=== PATIENT | female | born 1945 | race Caucasian/White ===

== ENCOUNTER → 2016-12-09 | Outpatient (REF) | payer MEDICARE ==
[~2016-12-09] MED LIST: /WARF25TA PO; ACET65TA PO; ASPI81TA85 PO; BACT800T PO; CELE1CAP4 PO; CRES5TAB PO; DULO20CA PO; FEVE380C PO; GLUC1000 PO; IRBE150T14 PO; NEXI1CAP4 PO; PRAV10TA4 PO; PREG50CA PO; ROPI0.5T PO; SKEL800T5 PO; TRAM50TA2 PO; VITA500046 PO; aspirin PO; avapro PO; b-complex PO; caltrate PO; cymbalta PO; flaxseed oil PO; flonase; hctz PO; loratadine PO; lovaza PO; requip PO; vitamin b-12 SUBQ; vitamin d PO
== END ==
LOC: M LAB REF 13:31
PROVIDERS: ATTEND Surgery
DX: C44.510 Basal cell carcinoma of anal skin (principal)

== ENCOUNTER 2017-02-09 10:33 | Day surgery (SDC) | payer MEDICARE ==
[~2017-02-09] VITALS: Ht 154.9 cm; Wt 69.4 kg
[~2017-02-09 10:33] MED LIST changes: +ACETAMINOPHEN 325 MG TAB PO PRN; +BSS with VANC/TOB/EPI for EYE CASES IR ONE; +CYCLOPENTOLATE 2% OPHTH SOLN 2ML BTL OD ONE; +LIDOCAINE 3.5 % 1ML OPHTH TOPICAL GEL OU ONE; +OFLOXACIN 0.3 % (OCUFLOX) OPTH SOL 5ML OD ONE; +PHENYLEPHRINE 2.5% OPHTH SOL 2ML OD ONE; +PROPARACAINE 0.5% OPHTH SOL 15ML OD PRN; +TROPICAMIDE 1% OPHTH SOLN 2ML OD ONE
[2017-02-09] MEDS ORDERED: MOXIFLOXACIN IN BSS 0.25MG/0.25ML INTRACAMERAL INJ (OR EYE ONLY)(J2280) As Ordered ONE (10:35)
[2017-02-09] MEDS ORDERED: LIDOCAINE 1% SDV 5 ML VIAL As Ordered ONE (10:35)
[2017-02-09] MEDS ORDERED: POVIDONE-IODINE 5% OPHTH PREP SOL 30ML As Ordered ONE (10:35)
[2017-02-09] MEDS ORDERED: HEALON DUET (HEALON 10MG/ML 0.55ML & HEALON ENDOCOAT 30MG/ML 0.85ML) As Ordered ONE (10:35)
[2017-02-09] MEDS ORDERED: TRIAMCINOLONE PRES FR 40 MG/ML 1ML(TRIESENCE)(OR EYE ONLY)(J3300 PER 1MG) As Ordered ONE (10:35)
[2017-02-09] MEDS ORDERED: LR 1,000 ML IV ONE (10:45)
[2017-02-09] MEDS ORDERED: MIDAZOLAM INJ 2 MG/2 ML VIAL (J2250) As Ordered ONE (11:51)
[2017-02-09] MEDS ORDERED: fentaNYL 100 MCG/2 ML INJECTION (J3010) As Ordered ONE (11:51)
[2017-02-09] MEDS ORDERED: AcetaZOLAMIDE 500 MG ER CAP As Ordered ONE (12:29)
[2017-02-09] MEDS ORDERED: fentaNYL 100 MCG/2 ML INJECTION (J3010) IV PRN (12:45)
[2017-02-09] MEDS ORDERED: LR 1,000 ML IV SCH (12:45)
[2017-02-09] MEDS ORDERED: AcetaZOLAMIDE 500 MG ER CAP PO ONE (12:45)
[2017-02-09] MEDS ORDERED: KETOROLAC 0.5% OPHTH SOLN OD ONE (12:45)
[2017-02-09] MEDS ORDERED: ONDANSETRON 4MG/2ML VIAL (J2405) IV PRN (12:45)
[2017-02-09] MEDS ORDERED: TRIMETHOBENZAMIDE 300 MG CAP PO PRN (12:45)
[2017-02-09 13:00] VITALS: BP 137/61
== END 2017-02-09 13:15 | disposition home or self-care (01) ==
LOC: M SDC 10:33
PROVIDERS: ATTEND Ophthalmology
DX: H25.9 Unspecified age-related cataract (principal); I10 Essential (primary) hypertension; E78.5 Hyperlipidemia, unspecified; K57.32 Diverticulitis of large intestine without perforation or abscess without bleeding; K21.9 Gastro-esophageal reflux disease without esophagitis; F41.9 Anxiety disorder, unspecified; F32.9 Major depressive disorder, single episode, unspecified; G47.30 Sleep apnea, unspecified; Z79.82 Long term (current) use of aspirin; Z79.899 Other long term (current) drug therapy
CPT/HCPCS: 66984; J2250; J2280; J3010; J3300; V2632

== ENCOUNTER 2017-02-18 09:48 | Day surgery (SDC) | payer MEDICARE ==
[~2017-02-18] VITALS: Ht 154.9 cm; Wt 69.4 kg
[~2017-02-18 09:48] MED LIST changes: -CYCLOPENTOLATE 2% OPHTH SOLN 2ML BTL OD ONE; +CYCLOPENTOLATE 2% OPHTH SOLN 2ML BTL OS ONE; -OFLOXACIN 0.3 % (OCUFLOX) OPTH SOL 5ML OD ONE; +OFLOXACIN 0.3 % (OCUFLOX) OPTH SOL 5ML OS ONE; -PHENYLEPHRINE 2.5% OPHTH SOL 2ML OD ONE; +PHENYLEPHRINE 2.5% OPHTH SOL 2ML OS ONE; -PROPARACAINE 0.5% OPHTH SOL 15ML OD PRN; +PROPARACAINE 0.5% OPHTH SOL 15ML XX PRN; -TROPICAMIDE 1% OPHTH SOLN 2ML OD ONE; +TROPICAMIDE 1% OPHTH SOLN 2ML OS ONE
[2017-02-18] MEDS ORDERED: LR 1,000 ML IV ONE (10:00)
[2017-02-18] MEDS ORDERED: OFLOXACIN 0.3 % (OCUFLOX) OPTH SOL 5ML As Ordered ONE (10:03)
[2017-02-18] MEDS ORDERED: CYCLOPENTOLATE 2% OPHTH SOLN 2ML BTL As Ordered ONE (10:03)
[2017-02-18] MEDS ORDERED: TROPICAMIDE 1% OPHTH SOLN 2ML As Ordered ONE (10:03)
[2017-02-18] MEDS ORDERED: PHENYLEPHRINE 2.5% OPHTH SOL 2ML As Ordered ONE (10:03)
[2017-02-18] MEDS ORDERED: MIDAZOLAM INJ 2 MG/2 ML VIAL (J2250) As Ordered ONE (10:32)
[2017-02-18] MEDS ORDERED: LIDOCAINE 1% SDV 5 ML VIAL As Ordered ONE (10:32)
[2017-02-18] MEDS ORDERED: fentaNYL 100 MCG/2 ML INJECTION (J3010) As Ordered ONE (10:32)
[2017-02-18] MEDS ORDERED: HEALON DUET (HEALON 10MG/ML 0.55ML & HEALON ENDOCOAT 30MG/ML 0.85ML) As Ordered ONE (10:32)
[2017-02-18] MEDS ORDERED: POVIDONE-IODINE 5% OPHTH PREP SOL 30ML As Ordered ONE (10:32)
[2017-02-18] MEDS ORDERED: TRIAMCINOLONE PRES FR 40 MG/ML 1ML(TRIESENCE)(OR EYE ONLY)(J3300 PER 1MG) As Ordered ONE (10:32)
[2017-02-18] MEDS ORDERED: MOXIFLOXACIN IN BSS 0.25MG/0.25ML INTRACAMERAL INJ (OR EYE ONLY)(J2280) As Ordered ONE (10:32)
[2017-02-18 12:00] VITALS: BP 164/72
[2017-02-18] MEDS ORDERED: AcetaZOLAMIDE 500 MG ER CAP As Ordered ONE (12:16)
[2017-02-18] MEDS ORDERED: KETOROLAC 0.5% OPHTH SOLN XX ONE (12:30)
[2017-02-18] MEDS ORDERED: AcetaZOLAMIDE 500 MG ER CAP PO ONE (12:30)
[2017-02-18] MEDS ORDERED: TRIMETHOBENZAMIDE 300 MG CAP PO PRN (12:30)
== END 2017-02-18 12:15 | disposition home or self-care (01) ==
LOC: M SDC 09:48
PROVIDERS: ATTEND Ophthalmology
DX: H25.9 Unspecified age-related cataract (principal); E11.9 Type 2 diabetes mellitus without complications; I10 Essential (primary) hypertension; E78.5 Hyperlipidemia, unspecified; K21.9 Gastro-esophageal reflux disease without esophagitis; F41.9 Anxiety disorder, unspecified; F32.9 Major depressive disorder, single episode, unspecified; Z79.82 Long term (current) use of aspirin; Z79.899 Other long term (current) drug therapy; G47.30 Sleep apnea, unspecified
CPT/HCPCS: 66984; J2250; J2280; J3010; J3300; V2632

== ENCOUNTER 2018-11-14 14:08 | Emergency (ER) | payer MEDICARE ==
[~2018-11-14] VITALS: Ht 157.5 cm; Wt 76.4 kg
[~2018-11-14 14:08] MED LIST changes: -/WARF25TA PO; -ACETAMINOPHEN 325 MG TAB PO PRN; -BSS with VANC/TOB/EPI for EYE CASES IR ONE; +CALC500T49 PO; +COUM1TAB18 PO; -CYCLOPENTOLATE 2% OPHTH SOLN 2ML BTL OS ONE; +CYMB1CAP4 PO; -DULO20CA PO; +ESCI5SOL3 PO; +FLUTISP; +HYDR-643 PO; -LIDOCAINE 3.5 % 1ML OPHTH TOPICAL GEL OU ONE; +MAGN1TAB26 PO; +MEMA1TAB2 PO; -OFLOXACIN 0.3 % (OCUFLOX) OPTH SOL 5ML OS ONE; +OXYB5TAB PO; -PHENYLEPHRINE 2.5% OPHTH SOL 2ML OS ONE; -PROPARACAINE 0.5% OPHTH SOL 15ML XX PRN; -TROPICAMIDE 1% OPHTH SOLN 2ML OS ONE; +TURM450C PO
[2018-11-14 15:11] LABS: HEMATOCRIT 38.3 % (36.0-47.0); HEMOGLOBIN 13.1 g/dl (12.0-15.5); MEAN CORPUSCULAR HGB CONC 34.2 g/dl (32.0-36.5); MEAN CORPUSCULAR VOLUME 105.2 fl (80.0-96.0); PLATELET COUNT, AUTOMATED 188 10^3/uL (150-450); RED BLOOD COUNT 3.64 10^6/uL (4.00-5.40); WHITE BLOOD COUNT 5.3 10^3/uL (4.0-10.0)
--- NOTE | 2018-11-14 15:30 | REP ---
CT study of the cervical spine without contrast: History: Headache. Injury in a fall. Technique: Helical scanning is acquired and overlapping 2 mm high resolution axial images were generated and reviewed at bone and soft tissue window settings. Coronal and sagittal multiplanar re-formations images are generated. CT findings: There is no evidence of cervical spine element fracture. No skull base fracture is seen. Cervical vertebral body heights are preserved. There is straightening and reversal of the normal cervical lordosis. There is ankylosis of the C5-6 disc space. There is partial fusion of the facet joints at this level bilaterally as well. No fracture or collapse is seen. There is osteoarthritic facet hypertrophy bilaterally at the mid cervical whole spine most prominent on the right at C3-4. There is mild central disc bulging at C4-5. There is discogenic spurring and uncovertebral spurring on the left at C6-7. Facet joints are normally aligned bilaterally at each cervical level on multiplanar re-formations images. There is no evidence of intraspinal or paraspinal hematoma. No extra vertebral abnormality is seen. Impression: Degenerative disc and facet changes. Reversal of the normal cervical lordosis. Central disc bulging at C4-5 and posterior osteophytic ridging and left-sided uncovertebral spurring at C6-7. C5-6 disc and facet joints are ankylosed. Otherwise negative CT study of the cervical spine without contrast. No fracture seen. Electronically Signed by Augusto Rubin MD 11/14/2018 03:21 P
[2018-11-14 15:40] LABS: ALBUMIN 3.9 GM/DL (3.2-5.2); ALT/SGPT 35 U/L (12-78); BILIRUBIN,DIRECT 0.1 MG/DL (0.0-0.2); BILIRUBIN,TOTAL 0.5 MG/DL (0.2-1.0); BLOOD UREA NITROGEN 30 MG/DL (7-18); CALCIUM LEVEL 9.3 MG/DL (8.8-10.2); CARBON DIOXIDE LEVEL 26 MEQ/L (21-32); CHLORIDE LEVEL 107 MEQ/L (98-107); CK-MB VALUE MASS 2.1 NG/ML (<3.6); CPK CREATINE PHOSPHOKINASE 162 U/L (26-192); CREATININE FOR GFR 0.82 MG/DL (0.55-1.30); GLOMERULAR FILTRATION RATE > 60.0 (>39); GLUCOSE, FASTING 125 MG/DL (70-100); POTASSIUM SERUM 3.6 MEQ/L (3.5-5.1); SODIUM LEVEL 142 MEQ/L (136-145); TOTAL PROTEIN 7.3 GM/DL (6.4-8.2); TROPONIN I < 0.02 NG/ML (< 0.10)
[2018-11-14 15:45] LABS: INR 1.04; PROTHROMBIN TIME 13.3 SECONDS (11.8-14.0)
[2018-11-14] MEDS ORDERED: KETOROLAC 30 MG/ML VIAL (J1885) IV ONE (16:45)
[2018-11-14] MEDS ORDERED: NS 1,000 ML IV ONE (16:45)
[2018-11-14 19:30] VITALS: BP 154/70
[2018-11-14] MEDS ORDERED: NEUR100C PO (19:45)
--- NOTE | 2018-11-15 08:11 | REP ---
CT BRAIN WITHOUT CONTRAST: HISTORY: Vertigo. Comparison head CT study October 07, 2014. 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 The maxilla is edentulous. On axial CT images, bone window settings show no bony calvarial defect. No skull fracture is seen. Visualized paranasal sinuses are clear. No intraorbital abnormality is seen. There is generalized intracranial volume loss. Mild small vessel changes are seen in the periventricular white matter of the frontal and parietal lobes bilaterally. There is no evidence of intracranial hemorrhage, acute infarction, mass, extra-axial fluid collection, or midline shift. IMPRESSION: Diffuse atrophy and mild small vessel changes. No acute intracranial abnormality. Electronically Signed by Augusto Rubin MD 11/15/2018 08:40 A
--- NOTE | 2018-11-15 20:31 | ECGEPIP ---
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
== END 2018-11-14 20:00 | disposition home or self-care (01) ==
LOC: M ED 14:08
DX: R51 Headache (principal); E11.9 Type 2 diabetes mellitus without complications; M79.7 Fibromyalgia; G47.33 Obstructive sleep apnea (adult) (pediatric); Z79.899 Other long term (current) drug therapy; Z79.82 Long term (current) use of aspirin; Z88.8 Allergy status to other drugs, medicaments and biological substances
CPT/HCPCS: 70450; 72125; 80048; 80076; 82550; 82553; 84484; 85027; 85610; 85730; 93005; 96374; 99284; J1885

== ENCOUNTER → 2019-09-27 | Outpatient (CLI) | payer MEDICARE ==
[~2019-09-27] MED LIST changes: +BUSP5TA PO; +CALC500T68 PO; +MELO15TA28 PO; +MEMA10TA19 PO; -MEMA1TAB2 PO; +NEUR100C PO; +OXYB-54 PO; -OXYB5TAB PO; -ROPI0.5T PO; +ROPI0.5T3 PO; +TURM500C3 PO
== END ==
LOC: M LABSMTC 13:24
PROVIDERS: ATTEND Anesthesiology
DX: Z01.818 Encounter for other preprocedural examination (principal); Z11.59 Encounter for screening for other viral diseases
CPT/HCPCS: C9803; U0003

== ENCOUNTER 2019-09-30 10:42 | Day surgery (SDC) | payer MEDICARE ==
[~2019-09-30] VITALS: Ht 154.9 cm; Wt 75.3 kg
[~2019-09-30 10:42] MED LIST changes: +LIDOCAINE 2% 100MG/5ML SDV (FOR ANES.) As Ordered ONE; +NS 1,000 ML IV ONE; +propofoL 200 MG/20 ML VIAL As Ordered ONE
--- NOTE | 2019-09-30 11:54 | ROOR ---
Patient Name: Charmaine Rose Procedure Date: 09/30/2019 11:34 AM Date of : 1945 Age: 73 Room: [facility] Gender: Female Note Status: Finalized Procedure: Total Colonoscopy to Cecum Indications: Screening for colorectal malignant neoplasm Providers: Jose Jain MD Referring MD: Nabila Ames NP Requesting Provider: Medicines: Monitored Anesthesia Care Complications: No immediate complications. Procedure: Pre-Anesthesia Assessment: - The heart rate, respiratory rate, oxygen saturations, blood pressure, adequacy of pulmonary ventilation, and response to care were monitored throughout the procedure. The Colonoscope was introduced through the anus and advanced to the cecum, identified by appendiceal orifice and ileocecal valve. The colonoscopy was performed without difficulty. The patient tolerated the procedure well. The quality of the bowel preparation was excellent. Findings: The perianal and digital rectal examinations were normal. Non-bleeding internal hemorrhoids were found during retroflexion. The hemorrhoids were small and Grade I (internal hemorrhoids that do not prolapse). Scattered small-mouthed diverticula were found in the recto-sigmoid colon, sigmoid colon and descending colon. The exam was otherwise without abnormality on direct and retroflexion views. Impression: - Non-bleeding internal hemorrhoids. - Diverticulosis in the recto-sigmoid colon, in the sigmoid colon and in the descending colon. - The examination was otherwise normal on direct and retroflexion views. - No specimens collected. - The exam was otherwise normal to the cecum. Recommendation: - Patient has a contact number available for emergencies. The signs and symptoms of potential delayed complications were discussed with the patient. Return to normal activities tomorrow. Written discharge instructions were provided to the patient. - High fiber diet. - Discharge patient to home. - Continue present medications. - Repeat colonoscopy for symptoms only. - The findings and recommendations were discussed with the patient's family. Jose Jain MD Jose Jain MD 09/30/2019 11:53:42 AM Electronically signed by Jose Jain MD Number of Addenda: 0 Note Initiated On: 09/30/2019 11:34 AM Estimated Blood Loss: Estimated blood loss: none.
[2019-09-30 12:20] VITALS: BP 133/60
== END 2019-09-30 13:18 | disposition home or self-care (01) ==
LOC: M OPP 10:42
PROVIDERS: ATTEND Internal Medicine Gastroenterology
DX: Z12.11 Encounter for screening for malignant neoplasm of colon (principal); Z86.010 Personal history of colon polyps; Z80.0 Family history of malignant neoplasm of digestive organs; K57.30 Diverticulosis of large intestine without perforation or abscess without bleeding; K64.0 First degree hemorrhoids; G47.30 Sleep apnea, unspecified; Z79.82 Long term (current) use of aspirin; Z79.899 Other long term (current) drug therapy; Z88.0 Allergy status to penicillin; Z88.8 Allergy status to other drugs, medicaments and biological substances

== ENCOUNTER 2022-07-30 07:31 | Day surgery (SDC) | payer MEDICARE ==
[~2022-07-30] VITALS: Ht 157.5 cm; Wt 69.8 kg
[~2022-07-30 07:31] MED LIST changes: +ASPI81TA26 PO; -ASPI81TA85 PO; +ASPI81TA86 PO; +CALC600C3 PO; +COQ-100C5 PO; +IRBE150T7 PO; -LIDOCAINE 2% 100MG/5ML SDV (FOR ANES.) As Ordered ONE; +MONT10TA97 PO; +OXYB15TA14 PO; +REPA1TAB6 PO; +VITA100093 PO; +VITMTA PO; +XARE10TA PO; -propofoL 200 MG/20 ML VIAL As Ordered ONE
[2022-07-30 09:16] VITALS: BP 184/87
== END 2022-07-30 09:26 | disposition home or self-care (01) ==
LOC: M OPP 07:31
PROVIDERS: ATTEND Internal Medicine Gastroenterology
DX: R10.13 Epigastric pain (principal); R13.10 Dysphagia, unspecified; K74.60 Unspecified cirrhosis of liver; E11.9 Type 2 diabetes mellitus without complications; G47.33 Obstructive sleep apnea (adult) (pediatric); Z79.02 Long term (current) use of antithrombotics/antiplatelets; Z79.82 Long term (current) use of aspirin; Z79.891 Long term (current) use of opiate analgesic; Z79.899 Other long term (current) drug therapy; Z88.0 Allergy status to penicillin; Z88.8 Allergy status to other drugs, medicaments and biological substances; Z86.73 Personal history of transient ischemic attack (TIA), and cerebral infarction without residual deficits

== ENCOUNTER → 2023-09-23 | Outpatient (REF) | payer MEDICARE, MEDICAID ==
[~2023-09-23] MED LIST changes: +IRBE150T27 PO; -IRBE150T7 PO; +MEMA10TA PO; -MEMA10TA19 PO; -NS 1,000 ML IV ONE; -ROPI0.5T3 PO; +ROPI0.5T33 PO
== END ==
LOC: M LABSMT 09:16
PROVIDERS: ATTEND Urology
DX: Z53.20 Procedure and treatment not carried out because of patient's decision for unspecified reasons (principal)

== ENCOUNTER → 2023-12-09 | Outpatient (REF) | payer MEDICARE, MEDICAID | LOC: M LABSMT 09:00 | PROVIDERS: ATTEND Urology | DX: R39.9 Unspecified symptoms and signs involving the genitourinary system (principal) ==

== ENCOUNTER → 2024-03-11 | Outpatient (REF) | payer MEDICARE, MEDICAID ==
[2024-03-11 14:31] LABS: APPEARANCE, URINE CLOUDY (CLEAR); BACTERIA, URINE AUTO NEGATIVE (NEGATIVE); BILIRUBIN, URINE AUTO NEGATIVE (NEGATIVE); BLOOD, URINE BLOOD 1+ (NEGATIVE); COLOR, URINE YELLOW (YELLOW); GLUCOSE, URINE (UA) AUTO 3+ mg/dL (NEGATIVE); KETONE, URINE AUTO NEGATIVE (NEGATIVE); LEUKOCYTE ESTERASE, URINE AUTO 3+ (NEGATIVE); MUCUS, URINE SMALL (NEGATIVE); NITRITE, URINE AUTO NEGATIVE (NEGATIVE); PROTEIN, URINE AUTO NEGATIVE (NEGATIVE); RBC, URINE AUTO 14 /HPF (0-3); SPECIFIC GRAVITY URINE AUTO 1.022 (1.002-1.035); SQUAMOUS EPITHELIAL CELL UR AU 1 /HPF (0-6); UROBILINOGEN, URINE AUTO 0.2 mg/dL (0.0-2.0); WBC, URINE AUTO TNTC /HPF (0-3)
== END ==
LOC: M SMT 12:43
PROVIDERS: ATTEND Urology
DX: R30.0 Dysuria (principal)

== ENCOUNTER → 2024-07-08 | Outpatient (REF) | payer MEDICARE, MEDICAID ==
[2024-07-08 20:43] LABS: APPEARANCE, URINE CLOUDY (CLEAR); BACTERIA, URINE AUTO 1+ (NEGATIVE); BILIRUBIN, URINE AUTO NEGATIVE (NEGATIVE); BLOOD, URINE BLOOD 1+ (NEGATIVE); COLOR, URINE AMBER (YELLOW); GLUCOSE, URINE (UA) AUTO 3+ mg/dL (NEGATIVE); KETONE, URINE AUTO NEGATIVE (NEGATIVE); LEUKOCYTE ESTERASE, URINE AUTO 2+ (NEGATIVE); NITRITE, URINE AUTO NEGATIVE (NEGATIVE); PROTEIN, URINE AUTO 1+ mg/dL (NEGATIVE); RBC, URINE AUTO 53 /HPF (0-3); SPECIFIC GRAVITY URINE AUTO 1.029 (1.002-1.035); SQUAMOUS EPITHELIAL CELL UR AU 1 /HPF (0-6); UROBILINOGEN, URINE AUTO 0.2 mg/dL (0.0-2.0); WBC, URINE AUTO TNTC /HPF (0-3); YEAST LIKE CELL URINE AUTO LARGE
== END ==
LOC: M SMT 16:54
PROVIDERS: ATTEND Urology
DX: Z87.440 Personal history of urinary (tract) infections (principal); Z79.899 Other long term (current) drug therapy

== ENCOUNTER → 2024-08-05 | Outpatient (REF) | payer MEDICARE, MEDICAID ==
[2024-08-05 13:57] LABS: APPEARANCE, URINE CLOUDY (CLEAR); BACTERIA, URINE AUTO 1+ (NEGATIVE); BILIRUBIN, URINE AUTO NEGATIVE (NEGATIVE); BLOOD, URINE BLOOD 1+ (NEGATIVE); COLOR, URINE YELLOW (YELLOW); GLUCOSE, URINE (UA) AUTO 3+ mg/dL (NEGATIVE); KETONE, URINE AUTO NEGATIVE (NEGATIVE); LEUKOCYTE ESTERASE, URINE AUTO 3+ (NEGATIVE); NITRITE, URINE AUTO NEGATIVE (NEGATIVE); PROTEIN, URINE AUTO 1+ mg/dL (NEGATIVE); RBC, URINE AUTO 13 /HPF (0-3); SPECIFIC GRAVITY URINE AUTO 1.028 (1.002-1.035); SQUAMOUS EPITHELIAL CELL UR AU 0 /HPF (0-6); UROBILINOGEN, URINE AUTO 0.2 mg/dL (0.0-2.0); WBC, URINE AUTO TNTC /HPF (0-3); YEAST LIKE CELL URINE AUTO MODERATE
== END ==
LOC: M LAB REF 12:32
PROVIDERS: ATTEND Urology
DX: B37.49 Other urogenital candidiasis (principal)

== ENCOUNTER → 2024-08-23 | Outpatient (REF) | payer MEDICARE, MEDICAID ==
[~2024-08-23] MED LIST changes: -PREG50CA PO; +PREG50CA87 PO
[2024-08-23 13:40] LABS: APPEARANCE, URINE HAZY (CLEAR); BACTERIA, URINE AUTO 1+ (NEGATIVE); BILIRUBIN, URINE AUTO NEGATIVE (NEGATIVE); BLOOD, URINE BLOOD 1+ (NEGATIVE); COLOR, URINE YELLOW (YELLOW); GLUCOSE, URINE (UA) AUTO 3+ mg/dL (NEGATIVE); KETONE, URINE AUTO NEGATIVE (NEGATIVE); LEUKOCYTE ESTERASE, URINE AUTO 2+ (NEGATIVE); MUCUS, URINE SMALL (NEGATIVE); NITRITE, URINE AUTO NEGATIVE (NEGATIVE); PROTEIN, URINE AUTO NEGATIVE (NEGATIVE); RBC, URINE AUTO 3 /HPF (0-3); SPECIFIC GRAVITY URINE AUTO 1.031 (1.002-1.035); SQUAMOUS EPITHELIAL CELL UR AU 1 /HPF (0-6); UROBILINOGEN, URINE AUTO 0.2 mg/dL (0.0-2.0); WBC, URINE AUTO TNTC /HPF (0-3)
== END ==
LOC: M SMT 12:51
PROVIDERS: ATTEND Urology
DX: N39.0 Urinary tract infection, site not specified (principal)

== ENCOUNTER → 2024-12-12 | Outpatient (REF) | payer MEDICARE, MEDICAID ==
[~2024-12-12] MED LIST changes: +PRAV10TA PO; -PRAV10TA4 PO; +TURM1CAP7 PO; -TURM500C3 PO
[2024-12-12 19:05] LABS: APPEARANCE, URINE CLOUDY (CLEAR); BACTERIA, URINE AUTO NEGATIVE (NEGATIVE); BILIRUBIN, URINE AUTO NEGATIVE (NEGATIVE); BLOOD, URINE BLOOD 1+ (NEGATIVE); GLUCOSE, URINE (UA) AUTO 2+ mg/dL (NEGATIVE); KETONE, URINE AUTO NEGATIVE (NEGATIVE); LEUKOCYTE ESTERASE, URINE AUTO 3+ (NEGATIVE); MUCUS, URINE SMALL (NEGATIVE); NITRITE, URINE AUTO NEGATIVE (NEGATIVE); PROTEIN, URINE AUTO 1+ mg/dL (NEGATIVE); RBC, URINE AUTO 23 /HPF (0-3); SPECIFIC GRAVITY URINE AUTO 1.015 (1.002-1.035); SQUAMOUS EPITHELIAL CELL UR AU 4 /HPF (0-6); UROBILINOGEN, URINE AUTO 0.2 mg/dL (0.0-2.0); WBC, URINE AUTO TNTC /HPF (0-3); YEAST LIKE CELL URINE AUTO SMALL
== END ==
LOC: M SMT 16:48
PROVIDERS: ATTEND Urology
DX: R33.9 Retention of urine, unspecified (principal)